=== PATIENT | female | born 1985 | race Caucasian/White ===

== ENCOUNTER 2019-01-08 10:20 | Outpatient (CLI) | payer OTHER ==
[2019-01-08] MEDS ORDERED: ACETAMINOPHEN 325 MG TAB PO ONE (11:00)
--- NOTE | 2019-01-08 15:37 | TRIAGE ---
OB Triage Datetime Report Generated by CPN: 01/08/2019 15:37 Datetime: 01/08/2019 13:28 Stage of : OB Triage Datetime: 01/08/2019 13:20 Labor Evaluation Frequency: 0 Monitor Mode: External Pattern: Normal: <= 5 Contractions in 10 Minutes Resting Tone [place]: Relaxed Heart Rate FHR Baseline Rate: 140 Monitor Mode: External US Variability: Moderate 6-25 bpm Accelerations: 10X10 Decelerations: None Pain Assessment Pain Scale: 4 Pain Presence: Constant Pain Type: Ache Pain Location: Abdomen Pain Goal: 3 Pain Relief Measures: Comfort Measures Datetime: 01/08/2019 12:40 Stage of : OB Triage Datetime: 01/08/2019 12:25 Labor Evaluation Frequency: 0 Monitor Mode: External Pattern: Normal: <= 5 Contractions in 10 Minutes Resting Tone [place]: Relaxed Heart Rate FHR Baseline Rate: 145 Monitor Mode: External US Variability: Moderate 6-25 bpm Decelerations: None Pain Assessment Pain Scale: 4 Pain Presence: Constant Pain Type: Ache Pain Location: Abdomen Pain Goal: 3 Pain Relief Measures: Comfort Measures Datetime: 01/08/2019 11:22 Labor Evaluation Frequency: x1 Monitor Mode: External Duration (sec)2399: 50 Pattern: Normal: <= 5 Contractions in 10 Minutes Resting Tone [place]: Relaxed Heart Rate FHR Baseline Rate: 140 Monitor Mode: External US Variability: Moderate 6-25 bpm Accelerations: 10X10 Decelerations: None Category: Category I Pain Assessment Pain Scale: 5 Pain Presence: Constant Pain Type: Ache Pain Location: Abdomen Pain Goal: 3 Pain Relief Measures: Comfort Measures Datetime: 01/08/2019 10:38 Stage of : OB Triage Datetime: 01/08/2019 10:29 Stage of : OB Triage Assessment Type: Triage Maternal Assessment Level of Consciousness: Fully Conscious DTR's/Clonus: DTRs 2+; No Clonus Headache: Denies Blurred Vision: No Respiratory Effort: Unlabored; Regular Rhythm; Equal Expansion Breath Sounds, Left: Clear and Equal Breath Sounds, Right: Clear and Equal Nausea/Vomiting: Denies RUQ Epigastric Pain: Denies Facial Edema: None Temperature Route: Axillary Fall Risk Assessment History of Falling: (0) No Secondary Diagnosis: (0) No Ambulatory Aid: (0) Bedrest/Nurse Assist IV Therapy: (0) No Gait: (0) Normal/Bedrest/Immobile Mental Status: (0) Oriented to Own Ability Fall Score: 0 Fall Risk Score Definition: No Risk: No action required Labor Evaluation Frequency: 0 Monitor Mode: External Pattern: Normal: <= 5 Contractions in 10 Minutes Resting Tone [place]: Relaxed Heart Rate FHR Baseline Rate: 145 Monitor Mode: External US Variability: Moderate 6-25 bpm Decelerations: None Category: Category I Pain Assessment Pain Scale: 5 Pain Presence: Constant Pain Type: Cramping Pain Location: Abdomen Pain Goal: 3 Pain Relief Measures: Comfort Measures Datetime: 01/08/2019 10:27 Time of Arrival: 01/08/2019 10:08 EGA: 23.0 Arrived By: Ambulatory Arrived From: Home Chief Complaint: STATES MOVING IN BED AND FELT STRETCH WHEN TURNING, PAIN IN LOWER RT QUADRANT THAT IS CONSTANT, DENIES LEAKING, BLEEDING OR UC'S Movement: Present Contractions: Denies/Absent Rupture of Membranes: Denies Vaginal Bleeding: None Vaginal Discharge: Denies Recent Sexual Intercouse: Denies Abdominal Trauma: Not Applicable Time Provider Notified: 01/08/2019 10:40 Provider Notified: jose Initial Plan: MONITOR, cbc, cmp, coag, u/s, tylenol
--- NOTE | 2019-01-08 16:46 | PN ---
Triage Information Date/Time 01/08/1911/28/1637 Reason for visit: Abd/pelvic pain Weeks of Gestation 23weeks /Para Diabetes: none Hypertention: none Additional information trying to get out of bed caught by bed sheet stretch muscle?? start pain on lower abdomen denies any Nausea or vomiting or diarrhea Objective T 97.8 P68 BP 110/63 Heart Rate: 130's Heart Rate Comments adequate for GA Contractions: None Exam abdomen soft no tenderness or referring tenderness or rebound tenderness Results/Medications Result Diagram: 01/08/19 1052 01/08/19 1052 Results 24 hrs Laboratory Tests Test 01/08/19 10:52 White Blood Count 9.2 Red Blood Count 2.98 L Hemoglobin 9.9 L Hematocrit 29.2 L Mean Corpuscular Volume 98.0 Mean Corpuscular Hemoglobin 33.2 H Mean Corpuscular Hemoglobin Concent 33.9 Red Cell Distribution Width 12.5 Platelet Count 200 Mean Platelet Volume 10.9 H Immature Granulocytes % 0.400 Neutrophils % 73.8 Lymphocytes % 18.4 Monocytes % 6.0 Eosinophils % 1.1 Basophils % 0.3 Nucleated Red Blood Cells % 0.0 Immature Granulocytes # 0.040 H Neutrophils # 6.8 Lymphocytes # 1.7 Monocytes # 0.6 Eosinophils # 0.1 Basophils # 0.0 Nucleated Red Blood Cells # 0.0 Prothrombin Time 13.5 Prothrombin Time Ratio 1.1 INR International Normalized Ratio 1.02 Activated Partial Thromboplast Time 28.3 Thrombin Time 14.9 Sodium Level 136 Potassium Level 3.7 Chloride Level 107 Carbon Dioxide Level 23 Anion Gap 6 Blood Urea Nitrogen 6 L Creatinine 0.49 Est Glomerular Filtrat Rate mL/min > 60 Glucose Level 82 Calcium Level 8.6 Total Bilirubin 0.1 L Direct Bilirubin 0.00 Indirect Bilirubin 0.1 Aspartate Amino Transf (AST/SGOT) 19 Alanine Aminotransferase (ALT/SGPT) 14 Alkaline Phosphatase 50 Total Protein 6.0 L Albumin 3.2 L Globulin 2.80 Albumin/Globulin Ratio 1.14 Medications tylenol 650mg Imaging Results RADHA MVP 6.0 no previa or abruptio Disposition: Discharge Assessment/Plan A [id number] ligament pain P rest RTH prn if symptoms increse in intensity or other sx develops RHONA VACA MD Jan 08, 2019 16:46
== END 2019-01-08 13:45 | disposition home or self-care (01) ==
LOC: OBT 10:20 → L-D 10:21 → OBT 13:45
PROVIDERS: ATTEND Obstetrics & Gynecology
DX: O26.892 Other specified pregnancy related conditions, second trimester (principal); R10.2 Pelvic and perineal pain; Z3A.23 23 weeks gestation of pregnancy
CPT/HCPCS: 76815; 80053; 85025; 85049; 85610; 85670; 85730; Z7500; G0463

== ENCOUNTER 2019-05-01 07:30 | Inpatient (IN) | payer OTHER ==
[~2019-05-01] VITALS: Ht 167.6 cm; Wt 78.0 kg
[2019-05-01] MEDS ORDERED: MISOPROSTOL 50 MCG CAPSULE VAG ONE (08:00)
[2019-05-01] MEDS ORDERED: OXYTOCIN 30 UNITS/LR 500 ML IV PRN ×2 (08:00→19:00)
[2019-05-01] MEDS ORDERED: CARBOPROST 250 MCG INJ IM PRN ×2 (08:00→19:00)
[2019-05-01] MEDS ORDERED: BUTORPHANOL 2 MG INJ IV PRN (08:00)
[2019-05-01] MEDS ORDERED: IBUPROFEN 600 MG TAB PO PRN (08:00)
[2019-05-01] MEDS ORDERED: LIDOCAINE 1% (MPF) 30 ML INJ INJ PRN (08:00)
[2019-05-01] MEDS ORDERED: MISOPROSTOL 200 MCG TAB PR PRN ×2 (08:00→19:00)
[2019-05-01] MEDS ORDERED: METHYLERGONOVINE 0.2 MG INJ IM PRN ×2 (08:00→19:00)
[2019-05-01] MEDS ORDERED: OXYTOCIN 30 UNITS/LR 500 ML IV SCH ×4 (08:00→18:33)
[2019-05-01 08:50] VITALS: Ht 167.6 cm; Wt 78.0 kg
[2019-05-01] MEDS: LACTATED RINGER'S 1,000 ML IV SCH ×2 (09:19→15:28)
[2019-05-01] MEDS ORDERED: CEFAZOLIN 2 GM/50 ML (PMX) 50 ML IVPB SCH (10:30)
--- NOTE | 2019-05-01 11:18 | PREOPHP ---
DATE OF ADMISSION: 05/01/2019 HISTORY OF PRESENT ILLNESS: This is a 33-year-old lady, 1, EDC 05/03/2019, at 39 and 5/7 wee ks , admitted to labor and delivery area in early labor. She had care in my [place] office and the care was uneventful. PAST PERSONAL HISTORY: No history of diabetes, TB, asthma. ALLERGIES: NO ALLERGIES. SOCIAL HISTORY: Patient does not smoke. She does not drink. MEDICATIONS: She does not take any drugs except her iron and vitamins. GYNECOLOGIC HISTORY: She had menarche at the age of 11, every 28 days interval, 3 to 4 days duration , and moderate in amount. FAMILY HISTORY: Grandfather and mother's side had autoimmune disorder. REVIEW OF SYSTEMS: CARDIOVASCULAR: No chest pains. RESPIRATORY: No cough. GASTROINTESTINAL: No diarrhea, no vomiting. GENITOURINARY: No dysuria. PHYSICAL EXAMINATION: GENERAL: Reveals a conscious, coherent lady and in no acute distress. VITAL SIGNS: Her blood pressure 120/80, pulse rate 80 per minute, respirations 15 per minute. BREASTS, HEART AND LUNGS: Within normal limits. ABDOMEN: Soft. No organomegaly. Fundic height 39 cm. heart tones 140 per minute. PELVIC: On admission revealed the cervix to be 1 to 2 cm dilated, 50% effaced, station -3 to floatin g in cephalic presentation with the bag of water intact. EXTREMITIES: No pedal edema. ADMITTING DIAGNOSIS: A 39 and 5/7 weeks intrauterine in early labor. The patient had an O B ultrasound done and estimated weight was 9 pounds 10 ounces. The plans of delivery were expl ained to the patient as to go for vaginal delivery. The risks, benefits, and alternatives to vaginal delivery or was explained to the patient and the patient was started on Pitocin augmentati on on admission, then after the ultrasound came back, again a long discussion with the patient was do ne. The risks of shoulder dystocia explained to her as well. The patient wanted to go for primary C -section for suspected macrosomia. The procedure was explained to her and she understood everything totally. The risks, benefits, and alternatives were discussed with her as well. Dictated By: SIXTO VARGAS/BOZENA Conf#: [id number] DID#: [id number]
[2019-05-01] MEDS ORDERED: CITRIC ACID/NA CITRATE 30 ML CUP PO ONE (13:30)
[2019-05-01] MEDS ORDERED: EPHEDrine 25 MG/5 ML SYG ONE (16:52)
[2019-05-01] MEDS ORDERED: morphine SULFATE/PF (10 MG/10 ML) INJ ONE (16:52)
[2019-05-01] MEDS ORDERED: METOCLOPRAMIDE 10 MG INJ ONE (16:53)
[2019-05-01] MEDS ORDERED: ONDANSETRON 4 MG INJ ONE (16:53)
[2019-05-01] MEDS ORDERED: MIDAZOLAM 1 MG/ML 2 ML INJ ONE (16:54)
[2019-05-01] MEDS ORDERED: OXYTOCIN 10 UNIT INJ ONE ×2 (16:54→17:25)
[2019-05-01] MEDS ORDERED: DIPHENHYDRAMINE 50 MG INJ ONE (17:05)
[2019-05-01] MEDS ORDERED: LACTATED RINGER'S 1,000 ML IV ONE (17:09)
--- NOTE | 2019-05-01 17:09 | PREAC ---
Date/Time of Note Date/Time of Note DATE: 05/01/19 TIME: 17:03 Anesthesia Eval and Record Evaluation Time Pre-Procedure Interview DATE: 05/01/19 TIME: 15:30 Age 34 Sex female NPO: 8 hrs Preoperative diagnosis iup @ 39.5 wks., , macrosomia, contractions. Planned procedure primary c/s Past Medical History Past Medical History: Includes : : (1), Para: (0) Surgery & Anesthesia Issues No known issue Meds Anticoagulation: No Beta Kelli within 24 hr: No Reason Beta Kelli not given: Pt. not on B-Kelli No Active Prescriptions or Reported Meds Current Medications Lactated Ringer's 1,000 ml @ 125 mls/hr Q8H IV Last administered on 05/01/19at 15:28; Admin Dose 125 MLS/HR; Start 05/01/19 at 07:44 Butorphanol Tartrate (Stadol) 2 mg Q2H PRN IV .PAIN SCALE 6-10; Start 05/01/19 at 08:00 Lidocaine (Xylocaine 1% (Mpf)) 30 ml ONCE PRN INJ .EPISIOTOMY; Start 05/01/19 at 08:00 Oxytocin/Lactated Ringer's 500 ml @ 500 mls/hr ONCE POST IV ; Start 05/01/19 at 08:00 Oxytocin/Lactated Ringer's 500 ml @ 125 mls/hr POST IV ; Start 05/01/19 at 08:00 Ibuprofen (Motrin) 600 mg ONCE PRN PO .PAIN 1-5; Start 05/01/19 at 08:00 Oxytocin/Lactated Ringer's 500 ml @ 0 mls/hr ONCE PRN IV .VAGINAL BLEEDING; Start 05/01/19 at 08:00 Methylergonovine Maleate (Methergine) 0.2 mg ONCE PRN IM .VAGINAL BLEEDING; Start 05/01/19 at 08:00 Carboprost Tromethamine (Hemabate) 250 mcg ONCE PRN IM .VAGINAL BLEEDING; Start 05/01/19 at 08:00 Misoprostol (Cytotec) 1,000 mcg ONCE PRN AL .VAGINAL BLEEDING; Start 05/01/19 at 08:00 Oxytocin/Lactated Ringer's 500 ml @ 0 mls/hr FOR INDUCTION IV Last administered on 05/01/19at 09:21; Admin Dose 1 MLS/HR; Start 05/01/19 at 08:00 Cefazolin Sodium/ Dextrose 50 ml @ 100 mls/hr ONCE IVPB ; Start 05/01/19 at 10:30 Oxytocin/Lactated Ringer's 500 ml @ 125 mls/hr POST IV ; Start 05/01/19 at 10:30 Meds reviewed: Yes Allergies Coded Allergies: No Known Allergy (Unverified , 01/08/19) Allergies Reviewed: Yes Labs/Studies Labs Reviewed: Reviewed by anesthesiologist Result Diagram: 05/01/19 0823 Laboratory Tests 05/01/19 08:23 Blood Bank Test 05/01/19 08:23 Antibody Screen NEGATIVE Blood Type A POSITIVE Rh Immune Globulin Candidate NO test: Positive Studies: ECG (n/a), CXR (n/a) Pre-procedure Exam Airway: Adequate mouth opening, Adequate thyromental dist Mallampati: Mallampati II Teeth: Normal Lung: Normal Heart: Normal ASA Physical Status ASA physical status: 2 Emergency: E Planned Anesthetic General/MAC: MAC Neuraxial: Spinal Planned Pain Management Sub-arachniod narcotics Pre-operative Attestations Prior to commencing anesthesia and surgery, the patient was re-evaluated, there was verification of: *The patient's identity *The results of appropriate recent lab work and preoperative vital signs *The above evaluation not changing prior to induction *Anesthetic plan, risk benefits, alternative and complications discussed with patient/family; questions answered; patient/family understands, accepts and wishes to proceed. Plant Culture Manager used KEERTHI LAN MD May 01, 2019 17:09
[2019-05-01] MEDS ORDERED: NALBUPHINE HCL (10 MG/1 ML) INJ IV PRN (17:30)
[2019-05-01] MEDS ORDERED: ONDANSETRON 4 MG INJ IV PRN (17:30)
[2019-05-01] MEDS ORDERED: NALOXONE (0.4 MG/ML) INJ IV PRN ×2 (17:30)
[2019-05-01] MEDS ORDERED: DIPHENHYDRAMINE 50 MG INJ IV PRN ×2 (17:30)
[2019-05-01] MEDS ORDERED: MIDAZOLAM 1 MG/ML 2 ML INJ IV PRN (17:30)
[2019-05-01] MEDS ORDERED: MEPERIDINE 25 MG INJ IV PRN (17:30)
[2019-05-01] MEDS ORDERED: HYDROmorphONE 0.5 MG/0.5 ML SYG IV PRN ×2 (17:30)
[2019-05-01] MEDS ORDERED: ZOLPIDEM 5 MG TAB PO PRN (17:30)
[2019-05-01] MEDS: OXYTOCIN 30 UNITS/LR 500 ML IV SCH (18:33)
[2019-05-01] MEDS ORDERED: LACTATED RINGER'S 1,000 ML IV SCH (18:33)
--- NOTE | 2019-05-01 18:42 | OPPN ---
Date/Time of Note Date/Time of Note DATE: 05/01/19 TIME: 18:39 Operative Report Planned Procedure Procedure date May 01, 2019 Procedure(s) PRIMARY CSECTION Performed by see signature line Senior Solutions Consultant: ELZBIETA GARCIA MD 2nd Senior Solutions Consultant none Pre-procedure diagnosis 39 5/7 IUP R/O MACROSOMIA [id number] Anesthesia Type: [id number] spinal Post-Procedure Post-procedure diagnosis 39 5/7 IUP MACROSOMIA Findings Live Baby BOY, Apgars 9and 9, weight 9LBS 8OZ Estimated Blood Loss: 600 - 700 mls Specimen(s) PLACENTA Grafts/Implant(s) none Complication(s) none SIXTO MELGAR MD May 01, 2019 18:42
[2019-05-01] MEDS ORDERED: METHYLERGONOVINE 0.2 MG TAB PO PRN (19:00)
[2019-05-01] MEDS ORDERED: LANOLIN HPA 1 PKT TOP PRN (19:00)
[2019-05-01] MEDS: KETOROLAC 30 MG INJ IV PRN (20:34)
[2019-05-01] MEDS: SENNA/DOCUSATE NA (8.6MG/50MG) TAB PO SCH (21:00)
[2019-05-01 22:00] VITALS: BP 114/78; PULSE 83; RESP 18
--- NOTE | 2019-05-02 00:14 | PAC ---
Date/Time of Note Date/Time of Note DATE: 05/02/19 TIME: 00:14 Post-Anesthesia Notes Post-Anesthesia Note Last documented vital signs Vital Signs Date Temp Pulse Resp B/P (MAP) Pulse Ox O2 O2 Flow FiO2 Time Delivery Rate 05/01/19 98.4 83 18 97 Room Air 22:00 Activity: WNL Respiratory function: WNL Cardiovascular function: WNL Mental status: Baseline Pain reasonably controlled: Yes Hydration appropriate: Yes Nausea/Vomiting absent: Yes KEERTHI LAN MD May 02, 2019 00:14
--- NOTE | 2019-05-02 00:16 | OPPN ---
Date/Time of Note Date/Time of Note DATE: 05/02/19 TIME: 00:14 Anesthesia Follow up Anesthesia Follow up Last documented vital signs Vital Signs Date Temp Pulse Resp B/P (MAP) Pulse Ox O2 O2 Flow FiO2 Time Delivery Rate 05/01/19 98.4 83 18 97 Room Air 22:00 Respiratory function: WNL Cardiovascular function: WNL Comments S: pt. pod #1. min. bt pain. min. n/v. min. need for bt pain meds. ie nsaids/opiates. ambulating. O: vss. afeb. A: min. bt pain. sec. to it mso4. P: no complications. KEERTHI LAN MD May 02, 2019 00:16
[2019-05-02 04:00] VITALS: BP 129/81; RESP 18
[2019-05-02 08:00] VITALS: BP 110/75; PULSE 71; RESP 16
[2019-05-02] MEDS: OXYTOCIN 30 UNITS/LR 500 ML IV SCH (08:38)
[2019-05-02] MEDS: SENNA/DOCUSATE NA (8.6MG/50MG) TAB PO SCH ×2 (08:38→21:44)
[2019-05-02] MEDS ORDERED: HYDROCODONE/APAP (5/325) TAB PO PRN ×2 (09:30)
[2019-05-02 12:00] VITALS: BP 111/70; PULSE 65; RESP 16
[2019-05-02] MEDS: KETOROLAC 30 MG INJ IV PRN (14:17)
[2019-05-02 15:40] VITALS: BP 114/74; PULSE 72; RESP 16
--- NOTE | 2019-05-02 16:53 | PN ---
Date/Time of Note Date/Time of Note DATE: 05/02/19 TIME: 16:52 Assessment/Plan VTE Prophylaxis Risk score (from Ns)>0 risk: 4 SCD applied (from Ns): Yes Pharmacological prophylaxis: NA/contraindicated Pharm contraindication: low risk/ambulating Lines/Catheters IV C[facility]ter Type [facility]from [facility] Saline Lock Assessment/Plan Assessment/Plan POSTCSECTION DAY 1 CHRONIC IRON DEFICIENCY ANEMIA ORDERED ADVANCE DIET TOLERATED CBC ON 3RD POSTOP DAY Result Diagram: 05/02/19 0622 05/02/19 0741 Results 24hrs Laboratory Tests Test 05/02/19 06:22 05/02/19 07:41 White Blood Count 13.6 #H Red Blood Count 3.25 L Hemoglobin 10.7 L Hematocrit 30.9 L Mean Corpuscular Volume 95.1 Mean Corpuscular Hemoglobin 32.9 Mean Corpuscular Hemoglobin Concent 34.6 Red Cell Distribution Width 12.3 Platelet Count 136 L Mean Platelet Volume 12.3 H Immature Granulocytes % 0.500 H Neutrophils % 83.8 H Lymphocytes % 9.7 L Monocytes % 5.6 Eosinophils % 0.2 Basophils % 0.2 Nucleated Red Blood Cells % 0.0 Immature Granulocytes # 0.070 H Neutrophils # 11.3 H Lymphocytes # 1.3 Monocytes # 0.8 Eosinophils # 0.0 Basophils # 0.0 Nucleated Red Blood Cells # 0.0 Sodium Level 133 L Potassium Level 3.9 Chloride Level 105 Carbon Dioxide Level 24 Anion Gap 4 L Blood Urea Nitrogen 8 Creatinine 0.57 Est Glomerular Filtrat Rate mL/min > 60 Glucose Level 70 Calcium Level 8.0 L Subjective 24 Hr Interval Summary Free Text/Dictation POST CSECTION DAY 1 COMPLAIN OF INCISIONAL PAINS GOOD URINE OUTPUT PASSING GAS PER RECTUM NO BOWEL MOVEMENT YET Exam/Review of Systems Exam Vitals Vital Signs Date Temp Pulse Resp B/P (MAP) Pulse Ox O2 O2 Flow FiO2 Time Delivery Rate 05/02/19 98.1 72 16 114/74 15:40 (87) 05/02/19 96 12:00 05/02/19 Room Air 04:00 Intake and Output 05/01/19 05/01/19 05/02/19 1515:00 23:00 07:00 IntakeIntake Total 2250 ml OutputOutput Total 1252 ml 700 ml BalanceBalance 998 ml -700 ml Exam VITAL SIGNS STABLE: YES AFEBRILE: YES BREAST NOT ENGORGED, NON-TENDER, NO APPRECIABLE MASS: YES LUNGS CLEAR, NO RALES, WHEEZES, RHONCHI: YES SINUS RHYTHM WITHOUT MURMUR: YES ABDOMEN: NON-TENDER FUNDUS: BELOW UMBILICUS BOWEL SOUNDS: PRESENT UTERUS: FIRM INCISION (CLEAN, DRY, AND INTACT): YES LOCHIA: LIGHT DEEP TENDON REFLEXES: 0 EXTREMITIES: NO CALF TENDERNESS EDEMA SCALE: NONE Results Results 24hrs Laboratory Tests Test 05/02/19 06:22 05/02/19 07:41 White Blood Count 13.6 #H Red Blood Count 3.25 L Hemoglobin 10.7 L Hematocrit 30.9 L Mean Corpuscular Volume 95.1 Mean Corpuscular Hemoglobin 32.9 Mean Corpuscular Hemoglobin Concent 34.6 Red Cell Distribution Width 12.3 Platelet Count 136 L Mean Platelet Volume 12.3 H Immature Granulocytes % 0.500 H Neutrophils % 83.8 H Lymphocytes % 9.7 L Monocytes % 5.6 Eosinophils % 0.2 Basophils % 0.2 Nucleated Red Blood Cells % 0.0 Immature Granulocytes # 0.070 H Neutrophils # 11.3 H Lymphocytes # 1.3 Monocytes # 0.8 Eosinophils # 0.0 Basophils # 0.0 Nucleated Red Blood Cells # 0.0 Sodium Level 133 L Potassium Level 3.9 Chloride Level 105 Carbon Dioxide Level 24 Anion Gap 4 L Blood Urea Nitrogen 8 Creatinine 0.57 Est Glomerular Filtrat Rate mL/min > 60 Glucose Level 70 Calcium Level 8.0 L Medications Medication Current Medications Butorphanol Tartrate (Stadol) 2 mg Q2H PRN IV .PAIN SCALE 6-10; Start 05/01/19 at 08:00 Lidocaine (Xylocaine 1% (Mpf)) 30 ml ONCE PRN INJ .EPISIOTOMY; Start 05/01/19 at 08:00 Oxytocin/Lactated Ringer's 500 ml @ 500 mls/hr ONCE POST IV ; Start 05/01/19 at 08:00 Oxytocin/Lactated Ringer's 500 ml @ 125 mls/hr POST IV Last administered on 05/02/19at 08:38; Admin Dose 125 MLS/HR; Start 05/01/19 at 08:00 Ibuprofen (Motrin) 600 mg ONCE PRN PO .PAIN 1-5; Start 05/01/19 at 08:00 Oxytocin/Lactated Ringer's 500 ml @ 0 mls/hr ONCE PRN IV .VAGINAL BLEEDING; Start 05/01/19 at 08:00 Oxytocin/Lactated Ringer's 500 ml @ 0 mls/hr FOR INDUCTION IV Last administered on 05/01/19at 09:21; Admin Dose 1 MLS/HR; Start 05/01/19 at 08:00 Cefazolin Sodium/ Dextrose 50 ml @ 100 mls/hr ONCE IVPB ; Start 05/01/19 at 10:30 Oxytocin/Lactated Ringer's 500 ml @ 125 mls/hr POST IV ; Start 05/01/19 at 10:30 Naloxone HCl (Narcan) 0.1 mg Q2M PRN IV .RESP RATE; Start 05/01/19 at 17:30; Stop 05/02/19 at 17:29 Ketorolac Tromethamine (Toradol) 30 mg Q6H PRN IV PAIN AFTER CSECTION Last administered on 05/02/19at 14:17; Admin Dose 30 MG; Start 05/01/19 at 17:30; Stop 05/02/19 at 17:29 Hydromorphone HCl (Dilaudid) 0.2 mg Q3H PRN IV .PAIN 1-5; Start 05/01/19 at 17:30; Stop 05/02/19 at 17:29 Hydromorphone HCl (Dilaudid) 0.4 mg Q3H PRN IV .PAIN 6-10; Start 05/01/19 at 17:30; Stop 05/02/19 at 17:29 Diphenhydramine HCl (Benadryl) 25 mg Q6H PRN IV .ITCHING; Start 05/01/19 at 17:30; Stop 05/02/19 at 17:29 Nalbuphine HCl (Nubain) 2 mg ONCE PRN IV .ITCHING; Start 05/01/19 at 17:30; Stop 05/02/19 at 17:29 Ondansetron HCl (Zofran Inj) 4 mg Q6H PRN IV .NAUSEA/VOMITING; Start 05/01/19 at 17:30; Stop 05/02/19 at 17:29 Zolpidem Tartrate (Ambien) 5 mg HS MAY REPEAT X 1 PRN PO .INSOMNIA; Start 05/01/19 at 17:30; Stop 05/02/19 at 17:29 Miscellaneous Information (* Miscellaneous Pharmacy Order) Duramorph: 0.2 mg Spi... GIVEN XX ; Start 05/01/19 at 17:30; Stop 05/02/19 at 17:29 Naloxone HCl (Narcan) 0.2 mg PRN PRN IV RR < 8; Start 05/01/19 at 17:30 Methylergonovine Maleate (Methergine) 0.2 mg Q6H PRN PO .VAGINAL BLEEDING; Start 05/01/19 at 19:00 Simethicone (Mylicon) 160 mg Q8H PRN PO .GAS; Start 05/01/19 at 19:00 Senna/Docusate Sodium (Senokot-S) 1 tab BID PO Last administered on 05/02/19at 08:38; Admin Dose 1 TAB; Start 05/01/19 at 21:00 Lanolin (Lanolin Hpa) 1 applic BEDSIDE MEDICATION PRN TOP .NIPPLES; Start 05/01/19 at 19:00 Diphtheria/ Tetanus/Acell Pertussis (Adacel) 0.5 ml ONCE ONCE IM* ; Start 05/04/19 at 09:00; Stop 05/04/19 at 09:01 Measles/Mumps/ Rubella Vaccine Live (Mmr Ii Vaccine) 0.5 ml ONCE ONCE SC* ; Start 05/04/19 at 09:00; Stop 05/04/19 at 09:01 Oxytocin/Lactated Ringer's 500 ml @ 0 mls/hr ONCE PRN IV .VAGINAL BLEEDING; Start 05/01/19 at 19:00 Methylergonovine Maleate (Methergine) 0.2 mg ONCE PRN IM .VAGINAL BLEEDING; Start 05/01/19 at 19:00 Carboprost Tromethamine (Hemabate) 250 mcg ONCE PRN IM .VAGINAL BLEEDING; Start 05/01/19 at 19:00 Misoprostol (Cytotec) 1,000 mcg ONCE PRN [place] .VAGINAL BLEEDING; Start 05/01/19 at 19:00 Ibuprofen (Motrin) 800 mg Q6H PRN PO MILD PAIN LEVEL 1-3; Start 05/02/19 at 17: 30 Acetaminophen/ Hydrocodone Bitart ([place] (5/325)) 1 tab Q4H PRN PO MODERATE PAIN LEVEL 4-6; Start 05/02/19 at 09:30 Acetaminophen/ Hydrocodone Bitart ([place] ()) 2 tab Q4H PRN PO SEVERE PAIN LEVEL 7-10; Start 05/02/19 at 09:30 SIXTO MELGAR MD May 02, 2019 16:53
--- NOTE | 2019-05-02 19:53 | OPR ---
DATE OF OPERATION: 05/01/2019 PREOPERATIVE DIAGNOSES: 1. A 39 and 5/7 weeks intrauterine in early labor. 2. Suspected macrosomia. 3. The patient desires section. POSTOPERATIVE DIAGNOSES: 1. A 39 and 5/7 weeks intrauterine in early labor. 2. Suspected macrosomia. 3. The patient desires section. OPERATION PERFORMED: Primary low transverse section. SURGEON: Sixto Garcia MD GROUND SERVICES INSTRUCTOR: Tej Motley MD ANESTHESIA: Spinal. ANESTHESIOLOGIST: David Rosa MD OPERATIVE TECHNIQUE: Under spinal anesthesia, the patient was prepped and draped in the usual fashio n for abdominal surgery. After checking for the effect of the anesthesia, Pfannenstiel incision, 12 cm skin incision was performed. The incision was carried from the skin up to the fascia. Upon openi ng the skin up to the fascia, small blood vessels were noted to be oozing and these were all cauteriz ed. Fascia was opened transversely followed by splitting the muscles vertically and the peritoneum v ertically. Upon opening the abdominal cavity, the bladder blade was put in place. A small niru was performed from the serosa up to the endometrium and the niru was carried sideways with the aid of my 2 fingers. My left hand was inserted in the lower segment of the uterus and the bag of water was rup tured. Baby's head was delivered with good fundal pressure. The baby's airway was quickly suctioned with amniotic fluid. There was 1 loop of cord around the baby's neck that needs to be released prio r to the delivery of the rest of the body of the baby. Baby's airway was quickly suctioned with amni otic fluid and the baby's cord was clamped after 30 seconds. Baby was handed to the wellfield technician and to the nursery nurse. The placenta was delivered manually and complete. The uterus was exterio rized. The uterus was cleansed with wet lap sponge to make sure that no membranes were left be hind. After correct sponge count, the uterus was closed in the usual fashion using #1 chromic for th e first layer, continuous locking suture was used followed by #1 chromic for the second layer, imbric ating sutures were used. Bleeders were checked and there was some oozing noted on the right mid port ion of the incision. This oozing was controlled with 3 [id number] sutures with 0 Vicryl. Then, once again bleeders were checked and there was no bleeding noted. Both tubes and ovaries were inspe cted. They were healthy looking. Both broad ligaments were checked for any hematoma and there was n one noted. Then the uterus was put back to the pelvic cavity. Once again, uterine incision was chec ked for any bleeders and there was no bleeding noted. After correct sponge count, needle count and i nstrument count as confirmed by the cardiac catheterization technologist and ice delivery driver, the abdomen was closed in the usual fa shion using 0 Vicryl for the peritoneum, 0 Vicryl for the muscles. For the fascia, 0 Vicryl continuo us stitch was used followed by few [id number] sutures. For the subcutaneous tissue, it was clos ed with 3-0 Vicryl and the skin was closed with 3-0 Vicryl, subcuticular suture was used. The patien t tolerated the procedure well. Estimated blood loss was about 700 mL. Vital signs were stable duri ng and after the delivery. The uterus was hypotonic. After the baby was born, uterus was massaged a nd bimanually compressed and Methergine was given. The uterus contracted. She delivered a healthy b yaritza boy on 05/01/2019 at 17:04, boy, Apgars 9 and 9, 9 pounds and 8 ounces, 4295 grams, 21 inches jacek g. Dictated By: SIXTO VARGAS/BOZENA Conf#: [id number] DID#: [id number]
[2019-05-02 20:00] VITALS: BP_SYST 117; BP_DIAS 56; BP_DIAS 62; PULSE 87; RESP 18
[2019-05-03 04:00] VITALS: BP 107/73; PULSE 107; PULSE 96; RESP 17
[2019-05-03 08:00] VITALS: BP 109/67; PULSE 80; RESP 17
[2019-05-03] MEDS: SENNA/DOCUSATE NA (8.6MG/50MG) TAB PO SCH ×2 (08:56→20:41)
--- NOTE | 2019-05-03 15:22 | PN ---
Date/Time of Note Date/Time of Note DATE: 05/03/19 TIME: 15:21 Assessment/Plan VTE Prophylaxis Risk score (from Nsg)>0 risk: 3 SCD applied (from Nsg): No SCD contraindicated: low risk/ambulating Pharmacological prophylaxis: NA/contraindicated Pharm contraindication: low risk/ambulating Lines/Catheters IV Catheter Type (from Nrsg): Saline Lock Assessment/Plan Assessment/Plan POST CSECTION DAY 2 CHRONIC IRON DEFICIENCY ANEMIA HOME TOMORROW CBC TOMORROW COUNSELED INSTRUCTED PRESCRIPTION GIVEN FOR PAIN RETURN TO CLINIC IN 2 WEEKS CALL OFFICE IF THERE IS ANY PROBLEM OR CONCERN CONTINUE WITH VITAMINS OD AND FERROUS SULFATE 325MG PO TID DIET ADVISED Result Diagram: 05/02/19 0622 05/02/19 0741 Results 24hrs Laboratory Tests Test 05/03/19 07:11 Lab Scanned Report REFERENCE LAB Subjective 24 Hr Interval Summary Free Text/Dictation POST CSECTION DAY 2 LITTLE BOWEL MOVEMENT GOOD URINE OUTPUT FEELS LESS INCISIONAL PAINS Exam/Review of Systems Exam Vitals Vital Signs Date Temp Pulse Resp B/P (MAP) Pulse Ox O2 O2 Flow FiO2 Time Delivery Rate 05/03/19 98.0 80 17 109/67 Room Air 08:00 (81) 05/02/19 96 12:00 Intake and Output 05/02/19 05/02/19 05/03/19 1515:00 23:00 07:00 IntakeIntake Total 475 ml OutputOutput Total 1000 ml 1500 ml BalanceBalance -1000 ml -1025 ml Exam VITAL SIGNS STABLE: YES AFEBRILE: YES BREAST NOT ENGORGED, NON-TENDER, NO APPRECIABLE MASS: YES LUNGS CLEAR, NO RALES, WHEEZES, RHONCHI: YES SINUS RHYTHM WITHOUT MURMUR: YES ABDOMEN: NON-TENDER FUNDUS: BELOW UMBILICUS BOWEL SOUNDS: PRESENT UTERUS: FIRM INCISION (CLEAN, DRY, AND INTACT): YES LOCHIA: LIGHT DEEP TENDON REFLEXES: 0 EXTREMITIES: NO CALF TENDERNESS EDEMA SCALE: NONE Results Results 24hrs Laboratory Tests Test 05/03/19 07:11 Lab Scanned Report REFERENCE LAB Medications Medication Current Medications Butorphanol Tartrate (Stadol) 2 mg Q2H PRN IV .PAIN SCALE 6-10; Start 05/01/19 at 08:00 Lidocaine (Xylocaine 1% (Mpf)) 30 ml ONCE PRN INJ .EPISIOTOMY; Start 05/01/19 at 08:00 Oxytocin/Lactated Ringer's 500 ml @ 500 mls/hr ONCE POST IV ; Start 05/01/19 at 08:00 Oxytocin/Lactated Ringer's 500 ml @ 125 mls/hr POST IV Last administered on 05/02/19at 08:38; Admin Dose 125 MLS/HR; Start 05/01/19 at 08:00 Oxytocin/Lactated Ringer's 500 ml @ 0 mls/hr ONCE PRN IV .VAGINAL BLEEDING; Start 05/01/19 at 08:00 Oxytocin/Lactated Ringer's 500 ml @ 0 mls/hr FOR INDUCTION IV Last administered on 05/01/19at 09:21; Admin Dose 1 MLS/HR; Start 05/01/19 at 08:00 Cefazolin Sodium/ Dextrose 50 ml @ 100 mls/hr ONCE IVPB ; Start 05/01/19 at 10:30 Oxytocin/Lactated Ringer's 500 ml @ 125 mls/hr POST IV ; Start 05/01/19 at 10:30 Naloxone HCl (Narcan) 0.2 mg PRN PRN IV RR < 8; Start 05/01/19 at 17:30 Methylergonovine Maleate (Methergine) 0.2 mg Q6H PRN PO .VAGINAL BLEEDING; Start 05/01/19 at 19:00 Simethicone (Mylicon) 160 mg Q8H PRN PO .GAS; Start 05/01/19 at 19:00 Senna/Docusate Sodium (Senokot-S) 1 tab BID PO Last administered on 05/03/19at 08:56; Admin Dose 1 TAB; Start 05/01/19 at 21:00 Lanolin (Lanolin Hpa) 1 applic BEDSIDE MEDICATION PRN TOP .NIPPLES; Start 05/01/19 at 19:00 Diphtheria/ Tetanus/Acell Pertussis (Adacel) 0.5 ml ONCE ONCE IM* ; Start 05/04/19 at 09:00; Stop 05/04/19 at 09:01 Measles/Mumps/ Rubella Vaccine Live (Mmr Ii Vaccine) 0.5 ml ONCE ONCE SC* ; Start 05/04/19 at 09:00; Stop 05/04/19 at 09:01 Oxytocin/Lactated Ringer's 500 ml @ 0 mls/hr ONCE PRN IV .VAGINAL BLEEDING; Start 05/01/19 at 19:00 Methylergonovine Maleate (Methergine) 0.2 mg ONCE PRN IM .VAGINAL BLEEDING; Start 05/01/19 at 19:00 Carboprost Tromethamine (Hemabate) 250 mcg ONCE PRN IM .VAGINAL BLEEDING; Start 05/01/19 at 19:00 Misoprostol (Cytotec) 1,000 mcg ONCE PRN DC .VAGINAL BLEEDING; Start 05/01/19 at 19:00 Ibuprofen (Motrin) 800 mg Q6H PRN PO MILD PAIN LEVEL 1-3; Start 05/02/19 at 17:30 Acetaminophen/ Hydrocodone Bitart ([place] (5/325)) 1 tab Q4H PRN PO MODERATE PAIN LEVEL 4-6; Start 05/02/19 at 09:30 Acetaminophen/ Hydrocodone Bitart ([place] (5/325)) 2 tab Q4H PRN PO SEVERE PAIN LEVEL 7-10; Start 05/02/19 at 09:30 SIXTO MELGAR MD May 03, 2019 15:22
[2019-05-03 16:00] VITALS: BP 111/61; PULSE 78; RESP 18
[2019-05-03 19:20] VITALS: BP 113/72; PULSE 83; RESP 19
[2019-05-03] MEDS: IBUPROFEN 800 MG TAB PO PRN (20:41)
[2019-05-03 23:00] VITALS: BP 99/61; PULSE 85; RESP 18
[2019-05-04] VITALS: BP 94/58; PULSE 82; RESP 19
[2019-05-04 04:00] VITALS: BP 100/59; PULSE 68; RESP 20
[2019-05-04] MEDS: IBUPROFEN 800 MG TAB PO PRN ×2 (07:22→14:48)
[2019-05-04 08:00] VITALS: BP 110/68; PULSE 85; RESP 18
[2019-05-04] MEDS ORDERED: MEASLES,MUMPS,RUBELLA VACCINE INJ SC* ONE (09:00)
[2019-05-04] MEDS ORDERED: DIPHTH/TET/ACEL PERTUSS (ADULT) 0.5 ML VIAL IM* ONE (09:00)
[2019-05-04] MEDS: SENNA/DOCUSATE NA (8.6MG/50MG) TAB PO SCH (10:03)
--- NOTE | 2019-05-05 16:48 | DELSUM ---
Delivery Summary A-C Datetime Report Generated by CPN: 05/05/2019 16:48 DELIVERY PERSONNEL Transportation Maintenance Operator: Duvo, Sasha MATERNAL INFORMATION Delivery Anesthesia: Spinal Medications in Delivery: SEE ANESTHESIA RECORD Delivery QBL (ml): 700 Placenta Cultured: No Maternal Complications: Other Other Maternal Complications: macrosomia LABOR SUMMARY EDC: 05/03/2019 00:00 No. Babies in Womb: 1 Attempted: No Labor Anesthesia: None LABOR INFORMATION Reason for Induction: Macrosomia Oxytocin: Induction Group B Beta Strep: Negative Antibiotics # of Doses: 1 Antibiotics Time of Last Dose: 05/01/2019 16:55 Steroids Given: None Reason Steroids Not Administered: Not Applicable MEMBRANES Membranes Rupture Method: Artificial Rupture of Membranes: 05/01/2019 17:03 Length of Rupture (hr): 0.02 Amniotic Fluid Color: Clear Amniotic Fluid Amount: Moderate Amniotic Fluid Odor: None STAGES OF LABOR Stage 3 hr: 0 Stage 3 min: 1 CSECTION DELIVERY Primary Indication: Other Other Primary Indication: SUSPECTED MACROSOMIA Secondary Indication: N/A CSection Urgency: Elective CSection Incidence: Primary Labor: No Labor Elective: Elective CSection Incision: Lower Uterine Transverse BABY A INFORMATION Infant Delivery Date/Time: 05/01/2019 17:04 Method of Delivery: Born in Route : No : N/A Forceps: N/A Vacuum Extraction: N/A Shoulder Dystocia : No SHOULDER DYSTOCIA BABY A Delivery Date/Time: 05/01/2019 17:04 PRESENTATION/POSITION BABY A Presentation: Cephalic Cephalic Presentation: Vertex Vertex Position: Left Occipital Anterior Breech Presentation: N/A PLACENTA INFORMATION BABY A Placenta Delivery Time : 05/01/2019 17:05 Placenta Method of Delivery: Manual Removal Placenta Status: Delivered SCORES BABY A Heart Rate 1 min: >100 bpm Resp Effort 1 min: Good Cry Reflex Irritability 1 min: Cough/Sneeze/Pulls Away Muscle Tone 1 min: Active Motion Color 1 min: Body [place], Extremit Blue Resuscitation Effort 1 min: Tactile Stimulation SCORE 1 MIN: 9 Heart Rate 5 min: >100 bpm Resp Effort 5 min: Good Cry Reflex Irritability 5 min: Cough/Sneeze/Pulls Away Muscle Tone 5 min: Active Motion Color 5 min: Body [place], Extremit Blue Resuscitation Effort 5 min: Tactile Stimulation SCORE 5 MIN: 9 INFANT INFORMATION BABY A Gestational Age at Delivery: 39.5 Gestational Status: Full Term- 39- 40.6 Weeks Outcome : Liveborn, with signs of life Infant Condition : Stable Sex: Male IDENTIFICATION/MEDS BABY A ID Band Number: [id number] ID Band Location: Right Leg; Left Arm Sensor Applied: Yes Sensor Number: [id number] Sensor Location : Cord Clamp Vitamin K Given : Not Given Erythromycin Given: Not Given WEIGHT/LENGTH BABY A Infant Birthweight (gm): 4295 Infant Weight (lb): 9 Weight (oz): 8 Length (in): 21.00 Length (cm): 53.34 CORD INFORMATION BABY A No. Cord Vessels: 3 Nuchal Cord : N/A Cord Blood Taken: Yes Suction: Mouth; Nose ASSESSMENT BABY A Infant Complications: None Physical Findings at Delivery: Within Normal Limits Respirations: Appears Normal Music Engineer/ALS Called : Yes Infant Care By: Julian DE LA ROSA Transferred To: Remains with Mother
== END 2019-05-04 15:13 | disposition home or self-care (01) | DRG 788 ==
LOC: L-D 07:39 → PP1 21:46
PROVIDERS: ADMIT Obstetrics & Gynecology; ATTEND Obstetrics & Gynecology
PROC: 10D00Z1 Extraction of Products of Conception, Low, Open Approach (ICD-10-PCS; principal; 2019-05-02)
DX: O36.63X0 Maternal care for excessive fetal growth, third trimester, not applicable or unspecified (principal); O99.02 Anemia complicating childbirth; D50.9 Iron deficiency anemia, unspecified; G89.18 Other acute postprocedural pain; Z3A.39 39 weeks gestation of pregnancy; Z37.0 Single live birth
CPT/HCPCS: 76815; 80048; 80307; 85025; 85610; 85730; 86592; 86850; 86900; 86901; 87340; 99464; J0690; J1200; J1885; J2250; J2274; J2405; J2590; J2765; J7120